=== PATIENT | male | born 1940 | race Caucasian/White ===

== ENCOUNTER 2016-09-22 11:50 | Inpatient (IN) | payer MEDICARE, OTHER ==
--- NOTE | ~2016-09-22 | DS ---
Discharge Summary [address] [place]. [address] NAME: HUSSAIN CANTOR : 39 STATUS : DIS IN PAT#: [id number] AGE: 76 ADM/REG DATE : 09/22/16 MR#: [id number] REPORT SERV DATE: 09/28/16 DICTATED BY: COSME TRACY DATE: 09/27/16 REPORT STATUS : Draft TRANSCRIBED BY: MODL DATE: 09/27/16 ADMISSION DATE: 09/22/2016 DISCHARGE DATE: 09/27/2016 CONDITION ON DISCHARGE: Stable. DISPOSITION: Discharged to inpatient rehab facility. DIAGNOSES ON DISCHARGE: 1. Recurrent falls because of unsteady gait secondary to Parkinson disease, which is a new diagnosis during this admission - patient has been started on medications for this. 2. Physical deconditioning which also necessitates inpatient rehab placement. 3. Hypertension, which is controlled; diabetes mellitus, controlled with an A1c of 6.2; vitamin D deficiency, which is stable; and hyperkalemia, resolved. BRIEF HOSPITAL COURSE: The patient is a 76-year-old male patient with a history of hypertension, some visual impairment, and a history of osteomyelitis of the right fifth toe, status post amputation who came in with generalized weakness and multiple falls and unsteady gait. The patient was actually diagnosed with new onset Parkinson disease during this admission after consulting Neurology. He was started on medications for Parkinson's and he is doing much better on the day of discharge, 09/27/2016. However, because he continues to be physically deconditioned and gait remains unsteady, he needs inpatient rehab placement for some time until he can get stronger and the physical deconditioning can improve. Hence, he is being sent to inpatient rehab. Medications that he has been started on and he is being sent home on include the following: The new medication will be Sinemet 25/100 one p.o. t.i.d. The patient will also continue with the rest of his home medications that include the followin. Aspirin 81 mg once a day. 2. Advair Diskus one puff b.i.d. 3. Metformin 1000 mg p.o. b.i.d. 4. Cromolyn nasal spray, one spray twice a day. 5. Norvasc 10 mg once a day. 6. Singulair 10 mg once a day. 7. Albuterol solution for inhalation p.r.n. 8. Levemir insulin 10 units every morning and NovoLog insulin injection sliding scale. The patient's most recent clinical results include the following. His CBC shows a WBC count of 7.2, hemoglobin 13.6, hematocrit of 38.6, platelets normal. Electrolyte profile shows sodium 136, potassium 5.6, which is coming down. BUN 23, creatinine 0.9. His glucose levels have been normal now and his A1c is less than 7 reflecting well controlled diabetes. Vitamin D was low, but this has been replaced. His sedimentation rate came back very slightly elevated at 22. Discharge Summary [address] [address] NAME: HUSSAIN CANTOR : 39 STATUS : DIS IN [facility]#: [id number] AGE: 76 ADM/REG DATE : 09/22/16 MR#: [id number] REPORT SERV DATE: 09/28/16 DICTATED BY: COSME TRACY DATE: 09/27/16 REPORT STATUS : Draft TRANSCRIBED BY: RIGOBERTO DATE: 09/27/16 He also had an MRI of the brain without contrast that shows mid brain atrophy and global atrophy, pattern of mid brain atrophy suggesting Parkinson's. No evidence of any acute infarction or acute bleed. The patient also had an MRI of the cervical spine as he complained of neck pain and frequent falls. This shows degenerative changes with retrolisthesis in C3-C4, but otherwise, no acute fracture at this time. No cord compression, no canal stenosis. The patient also had an electroencephalogram per Neurology, and this suggest essentially within normal limits with no seizure activity noted. Hence, he is being sent home on Sinemet according to Neurology suggestion. The patient also had a chest x-ray that showed no acute cardiopulmonary abnormality during this admission. Hence, the patient is being sent to inpatient rehab in stable condition, and I have spent about 40 minutes in coordinating discharge care of this patient including [id number] encounter. LATANYA/RIGOBERTO Cosme Tracy M.D. / [id number] CC: Tiffanie Ring M.D.
--- NOTE | ~2016-09-22 | IDS ---
Interim Discharge Summary [facility] [address] [facility] [place]. [address] NAME: HUSSAIN CANTOR : 39 STATUS : ADM IN [facility]#: [id number] AGE: 76 ADM/REG DATE : 09/22/16 MR#: [id number] REPORT SERV DATE: 09/27/16 DICTATED BY: SHIRA ARGUELLO DATE: 09/26/16 REPORT STATUS : Draft TRANSCRIBED BY: RIGOBERTO DATE: 09/26/16 ADMISSION DATE: 09/22/2016 DISCHARGE DATE: DATE OF DISCHARGE: Pending. CURRENT DIAGNOSES: 1. Unsteady gait secondary to Parkinson disease (new diagnosis during this admission). 2. Recurrent fall. 3. Physical deconditioning. 4. Hypertension. 5. Diabetes mellitus. A1c 6.2. 6. Vitamin D deficiency. 7. Hyperkalemia, resolved. 8. Current condition, stable. HISTORY OF PRESENT ILLNESS: In brief, this is a 76-year-old male with a medical history of hypertension, visual impairment, history of osteomyelitis of the right 5th toe, status post amputation, wound well healed; who presented to the hospital with progressive generalized weakness and unsteady gait. In the ER, the patient was found to have relatively normal vitals. Physical examination was positive for cogwheel rigidity concerning for Parkinson disease. The patient was admitted to the hospital for further evaluation. HOSPITAL COURSE: 1. Unsteady gait. Neurology was consulted, given concern for possible Parkinson based on physical examination of cogwheel rigidity and blunt affect. An MRI was ordered. MRI showed midbrain atrophy and global atrophy. Pattern of midbrain atrophy raises the concern that there may be underlying Parkinson disease. The patient was started on amantadine and Sinemet by Neurology. The patient's overall condition has improved. The patient currently remained stable. Now awaiting placement into SNF for physical rehabilitation. 2. Diabetes mellitus, HbA1c of 6.2. The patient has had multiple episodes of hypoglycemia during the course of this admission. Long-acting insulin has currently been discontinued. The patient is currently on subcu sliding scale insulin. At the time of discharge, the patient will likely require very low dose of oral hypoglycemic. 3. Vitamin D deficiency. The patient was found to have a vitamin D level of 7 and was started on 5000 units of vitamin D p.o. hourly. 4. Hyperkalemia. The patient had a potassium of 5.4. This was repeated and noted to be 5.1. We will currently monitor. 5. Current condition, stable. Awaiting placement. IOO/MODL Shira Kasper Interim Discharge Summary [address] [address] NAME: HUSSAIN CANTOR : 39 STATUS : ADM IN PAT#: [id number] AGE: 76 ADM/REG DATE : 09/22/16 MR#: [id number] REPORT SERV DATE: 09/27/16 DICTATED BY: SHIRA ARGUELLO DATE: 09/26/16 REPORT STATUS : Draft TRANSCRIBED BY: MODBaldomero DATE: 09/26/16 MD Albaro / [id number]
--- NOTE | ~2016-09-22 | HP ---
History And Physical [address] [place]. [address] NAME: HUSSAIN CANTOR : 39 STATUS : ADM IN [facility]#: [id number] AGE: 76 ADM/REG DATE : 09/22/16 MR#: [id number] REPORT SERV DATE: 09/22/16 DICTATED BY: ALLIE MENDES DATE: 09/22/16 REPORT STATUS : Draft TRANSCRIBED BY: MODL DATE: 09/22/16 DATE OF ADMISSION: 09/22/2016 ATTENDING PHYSICIAN: Dr. Allie Pittman. REASON FOR ADMISSION: Unsteady gait, falling, and altered mental status with declining acuity. HISTORY: This is a 76-year-old white male, who had been in the hospital in May with osteomyelitis of his right 5th toe. He has been followed by [facility] and has followed up with Dr. Rivera Fuentes subsequently. His primary care physician Dr. Juan King . The patient was in rehabilitation and did fairly well and went home but over the ensuing 3 weeks, he became increasingly stiff, difficulty with falling balance and now with change in mental status. He has had no fever, chills, or night sweats. No stiff neck. He has no seizure disorder. No unilateral weakness. No melena or hematemesis. Blood sugars have been in the 120 to 130 range without known hypoglycemia at home. He has been wearing a boot since he got home and has not been graduated to a shoe insert yet by Dr. Fuentes though his family was asking about this. He has gone home to live with one of his sons. PAST MEDICAL HISTORY: He had osteomyelitis of the 5th toe with amputation of that least toe on the right side. 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 His blood sugar has not been under fairly good control as his high blood pressure and constipation. HOME MEDICATIONS: His home medications at discharge in May were as follows: Amlodipine 10 mg p.o. daily; aspirin 81 mg p.o. daily; atorvastatin 40 mg at bedtime; Colace 100 mg p.o. b.i.d.; Lovenox at the time of discharge 40 units subcu q.12 hours; Levemir 10 units subcu daily, sliding scale with NovoLog; Mag-Ox 800 mg p.o. b.i.d.; Singulair 10 mg p.o. daily, MiraLAX 1 packet a day; cromolyn sodium nasal spray; Advair Diskus 1 puff daily; and metformin 1000 mg p.o. b.i.d. SOCIAL HISTORY: He has been for about 3 years. He was raised on [address] [address] and lived on [facility] for most of his life. He has never been a smoker. He used to drink beer 2 or 3 a day. 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 FAMILY HISTORY: There is diabetes that runs in the family. He does have an older brother and a younger brother; the older brother lives on [facility] near [facility] and the younger brother lives in [place]. His family doctor, Dr. Juan King is and Dr. Lisa Ulrich has been doing the History And Physical [address] [address] NAME: HUSSAIN CANTOR : 39 STATUS : ADM IN PAT#: [id number] AGE: 76 ADM/REG DATE : 09/22/16 MR#: [id number] REPORT SERV DATE: 09/22/16 DICTATED BY: ALLIE MENDES DATE: 09/22/16 REPORT STATUS : Draft TRANSCRIBED BY: RIGOBERTO DATE: 09/22/16 filling of his prescriptions most recently but he has only followed up with Dr. Rivera Fuentes, his foot surgeon. REVIEW OF SYSTEMS: He denies any chest pain or shortness of breath. He had no fever, chills, or night sweats. He is alert and oriented to place and time. He has had no melena or hematemesis. He was much more lethargic earlier today according to his children who are vigilant at bedside. He has had no abdominal pain, nausea, vomiting, or diarrhea. No fits, seizures, convulsion, unilateral weakness, melena, or hematemesis. The remainder of the review of systems is negative. PHYSICAL EXAMINATION: GENERAL: Elderly appearing white male, looking older than the stated age, in no acute distress. He arouses to . He is somewhat slurred in his speech. Blood pressure initially is 143/51, heart rate 68, respiratory rate 12, and oxygen saturation 96. HEENT: EOMI. Sclerae are clear. Conjunctivae pink. NECK: No bruit without any JVD. CHEST: Clear to A and P. HEART: Regular S1, S2 without any murmur, gallop, or click. ABDOMEN: Soft, nontender. Bowel sounds positive. No HSM. EXTREMITIES: Have abrasion joseph on the knees with left being greater than right and on the point of contact, elbows with ecchymoses of the hands and arms. His tone is increased bilaterally. He does have slight cogwheeling of the right upper extremity. He is stiff in the left upper extremity as well as is in the legs. Trace DTR is listed about the right knee, none at the left. His management scientist is equal and symmetric. Coordination appears to be intact with finger to nose. He has no baseline tremor. SKIN: With abrasions noted. LYMPHATICS: There is no adenopathy palpable. LABORATORY: CT scan of the brain only shows deep white matter disease. There is no evidence of acute intracranial process. His urinalysis showed 1 white cell and less than 1 red cell per high-powered field with a specific gravity of 1.015 and a pH of 5. The hemoglobin was 12.6, hematocrit , his MCV was 92.2, and platelets 191,000. Chest x-ray showed no acute disease and the CMP was unrevealing with a creatinine of 0.68 with BUN of 33. Sodium 139, potassium 4.1. Liver tests were normal. Albumin was 3.4. Troponin less than 0.01. EKG shows right bundle-branch block which is an old finding. Baseline muscle artifact. Left axis deviation. ASSESSMENT: History And Physical [address] [address] NAME: HUSSAIN CANTOR : 39 STATUS : ADM IN [facility]#: [id number] AGE: 76 ADM/REG DATE : 09/22/16 MR#: [id number] REPORT SERV DATE: 09/22/16 DICTATED BY: ALLIE MENDES DATE: 09/22/16 REPORT STATUS : Draft TRANSCRIBED BY: RIGOBERTO DATE: 09/22/16 1. Weakness with falling. 2. Altered mental status. The patient appears to be lethargic but arousable and is oriented to place and time. I wonder about polypharmacy. His home medications will be identified at this time. 3. Increased rigidity. I wondered if this may be a parkinsonism developing. He has had dysautonomia with a gastroparesis. No bladder dysfunction that the family knows about. He does have a slight resting tremor on the right side and increasing tone with more right-sided cogwheeling in the left side. We will get Neurology to see if they concur with parkinsonism is some of his problem. 4. Diabetes type 2. Blood sugars have been running in the 120 to 130 range at home. I wonder if he may have had an occult nocturnal hypoglycemic reaction though his onset of symptoms is actually over a 3 week period of time and not acute. 5. History of C-spinal surgery could account for the increase in tone in the lower extremities. 6. History of ileus and possible dysautonomia. 7. Severe diabetic neuropathy with normal circulation studies according to the children. PLAN: admit to the hospital, monitor, check blood sugars, restart home medications. Add physical therapy to see if he is able to walk safely. The family has considered [facility]. If he is unable to recover to the point where he could be able to care for himself more at home. We will check the ammonia level, B12, folic acid, and TSH level to see if any of these are revealing. MAGALI/RIGOBERTO Allie Mendes M.D. / [id number] CC: Tiffanie Lobo Jr., M.D. Yune-gill Jeong, M.D.
--- NOTE | ~2016-09-22 | EEG ---
Electro[address]ogram [address] [place]. [address] NAME: HUSSAIN CANTOR : 39 STATUS : ADM IN PAT#: [id number] AGE: 76 ADM/REG DATE : 09/22/16 MR#: [id number] REPORT SERV DATE: 09/23/16 DICTATED BY: DATE: REPORT STATUS : Draft TRANSCRIBED BY: MODL DATE: 09/23/16 CLINICAL INDICATIONS: Encephalopathy. DESCRIPTION: This EEG was performed using 10/20 electrode placement system. During the EEG study, symmetric background activity was noted, with the patient noted to have an artifact originating from the F1 electrode. Otherwise, the patient was noted to have symmetric background activity, predominant occipital rhythm of 8-9 hertz. Photic stimulation was performed, however, driving response was not seen. Hyperventilation was not performed secondary to the patient's underlying medical conditions. The patient achieved drowsy, stage I and II sleep with appropriate sleep spindles and K-complexes. INTERPRETATION: This EEG study obtained during awake, drowsy as well as stage I and II sleep may be considered within normal limits. No focal abnormalities, seizure activity, or seizure discharge was otherwise noted. Clinical correlation is recommended. [facility]/MODL Sebastián Erickson MD / [id number] CC: Shira Irvin MD
--- NOTE | ~2016-09-22 | CN ---
Consultation Report [facility] [address] [place]. [address] NAME: HUSSAIN CANTOR : 39 STATUS : ADM IN PAT#: [id number] AGE: 76 ADM/REG DATE : 09/22/16 MR#: [id number] REPORT SERV DATE: 09/22/16 DICTATED BY: DATE: REPORT STATUS : Draft TRANSCRIBED BY: MODL DATE: 09/22/16 NEUROLOGY CONSULTATION DATE OF CONSULTATION: 09/22/2016 REASON FOR CONSULT: Gait abnormality. HISTORY OF PRESENT ILLNESS: This is a 76-year-old male with underlying peripheral neuropathy, presented to [facility] secondary to gait abnormality with the patient's ER notes reports the patient has had a least two-weeks' duration of worsening gait and generalized weakness with the patient apparently has had a fall two weeks ago and has recurrent falls since then. The patient at this time denies any pain and denies any cervical or spinal pain. The patient himself denies any bowel or bladder difficulties, but he reports a longer duration of symptom with the patient reports difficulties with the gait as well as ambulation ever since toe amputation. The patient does not remember when the amputation took place, although after reviewing medical record, it appeared the patient did have a toe amputation secondary to osteomyelitis in May 2016. The patient reports a fall at least a month ago and appeared to have frequent falls, but otherwise denies any dysarthria. The patient at baseline does have vision difficulties secondary to retinopathy and patient denies any visual hallucinations. No other complaint was otherwise noted. The patient denies any recent fever, chills, nausea, vomiting, chest pain, or shortness of breath and denies any recent changes in medication. The patient does have a history of toe amputation secondary to osteomyelitis as well as a history of diabetes with the history of a neuropathy with loss sensation in the lower extremities. The patient also was noted to have retinopathy and was legally blind. The patient does have a history of hypertension, COPD, asthma, right bundle branch block, depression, anxiety as well as previous a history of diabetic foot ulcers. ALLERGIES: THE PATIENT REPORTS NO KNOWN DRUG ALLERGIES. SOCIAL HISTORY: Denies tobacco, reports daily two to three beers per day according to medical records and no illicit drug usage was otherwise noted. FAMILY HISTORY: Significant for diabetes. HOME MEDICATION: At the time of hospital admission consist of Proventil, Norvasc, Advair, Glucophage, Singulair, Coumadin, nasal spray, Levemir, and NovoLog. REVIEW OF SYSTEMS: At time of evaluation, review of systems negative except for those mentioned in the HPI. PHYSICAL EXAMINATION: VITAL SIGNS: The patient was noted to have vital signs with T-max of 97.5, heart rate of 68 to 72, respirations of 12 to 16, and blood pressure of 130 to 143 over 51 to 63. Consultation Report [address] [place]. [address] NAME: HUSSAIN CANTOR : 39 STATUS : ADM IN PAT#: [id number] AGE: 76 ADM/REG DATE : 09/22/16 MR#: [id number] REPORT SERV DATE: 09/22/16 DICTATED BY: DATE: REPORT STATUS : Draft TRANSCRIBED BY: RIGOBERTO DATE: 09/22/16 GENERAL: The patient is well developed, well nourished, in no acute distress. CARDIOVASCULAR: Regular rate and rhythm. No carotid bruits were otherwise auscultated. PULMONARY: Clear to auscultation bilaterally. NEUROLOGICAL EXAMINATION: Generally, the patient is alert and oriented to person, place, year, and month. Also, the patient was noted to have mild psychosocial retardation. At the time of evaluation, intact registration, but difficulty with recall. At the time of evaluation, the patient is able to follow simple and 2-step commands, also has some difficulties with complex commands. Dysarthria was noted, but no significant aphasia was appreciated. Cranial nerves II through XII, pupils equal, round, and reactive to light. Horizontal eye movement was noted to be intact with restricted vertical eye movement. At the time of evaluation, blink to threat was noted, also the patient was noted having difficulties visualized the finger with to visualize the examiner's finger. The patient otherwise demonstrated symmetrical facial expression. Midline tongue. Normal palatal movement. Mild decreased hearing in bilateral ear. The patient reports symmetrical sensation in bilateral face. The patient was noted to have a severe decreased sensation in the bilateral lower extremity. Reports an intact sensation in bilateral upper extremity. At the time of evaluation was noted to have generalized rigidity at the time of evaluation, no clear resting tremor was visualized or posture tremor was seen, especially in the left upper extremity. No clear ataxia was otherwise noted. The patient does have reflexes in bilateral biceps as well as trace patellar reflex in the right lower extremity and absent left patellar reflex. Upgoing toe and bilateral plantar reflexes. The patient was noted to have posture instability was retropulsion, but no clear ataxia. Gait was unable to be evaluated. Also, the patient was having difficulty maintaining sitting posture unsupported. The patient was noted to have 4/5 for left upper extremity and 4/5 left lower extremity on examination, with the patient noted to have 5/5 right upper extremity and right lower extremity strength. LABORATORY STUDIES: The patient's laboratory studies demonstrated chemistry panel, sodium 139, potassium 4.1, chloride 108, bicarb 23, BUN of 33, creatinine of 0.68, glucose of 95, calcium of 9.0. White blood cell count of 11.3, hemoglobin of 12.6, hematocrit of 34.5, and platelet count of 190. Urinalysis otherwise demonstrated negative leukocyte esterase, negative nitrite. CT scan of the brain demonstrated mild generalized atrophy, but no acute event was seen. IMPRESSION: Gait abnormalities. No resting tremor was otherwise noted, but generalized rigidity and stiffness was appreciated. On evaluation, the patient was noted to have posture tremors with the left upper extremity, but no clear resting tremors. Duration of gait abnormality was unknown, but likely two weeks or little. The patient denies bowel or bladder difficulties and was noted to have retained reflexes in bilateral upper extremity as well as trace reflex in right lower extremity patella. Also, was noted to have weakness in the left upper extremity and left lower extremity on evaluation. IMPRESSION: We will obtain laboratory study as well as MRI of the brain and C-spine without Consultation Report [address] [place]. [address] NAME: HUSSAIN CANTOR : 39 STATUS : ADM IN [facility]#: [id number] AGE: 76 ADM/REG DATE : 09/22/16 MR#: [id number] REPORT SERV DATE: 09/22/16 DICTATED BY: DATE: REPORT STATUS : Draft TRANSCRIBED BY: MODL DATE: 09/22/16 contrast. Pending the patient's mental status as well as lab and MRI results, may start the patient on trial of Sinemet, we will order medications, and we will order further diagnostic study as needed. RECOMMENDATION: 1. EEG. 2. MRI of the brain and C-spine without contrast. 3. Vitamin B12, folate, TSH, and ammonia level pending. 4. We will obtain procalcitonin level, sedimentation rate, CRP, free T4 with morning labs. 5. PT/OT to evaluate and treat. 6. We will also check orthostatic vital signs. [facility]/MODL Sebastián Erickson MD / [id number] CC: Ramiro Pittman M.D.
[~2016-09-22 11:50] MED LIST: ADVAIR250 INH; ADVIL PO; FORTAMET500 MG PO; NASALCROM5.2 MG/ACT; NORV5 PO; SINGULAIR1 PO
[2016-09-22 12:02] LABS: ASCORBIC ACID (UR NOT ORDER) NEG (NEG); BASOPHILS 0.2 %; BASOPHILS ABSOLUTE 0.02 10/3/uL (0.0-0.16); BILIRUBIN, URINE NEGATIVE (NEG); EOSINOPHILS ABSOLUTE 0.11 10/3/uL (0.0-0.53); ER CBC TAT 0 Hrs 14 Mins; ER URINALYSIS TAT 0 Hrs 14 Mins; HEMATOCRIT 34.5 % (40.0-51.0); HEMOGLOBIN 12.6 g/dL (13.6-17.8); IMMATURE GRANULOCYTES 0.4 %; IMMATURE GRANULOCYTES ABSOLUTE 0.05 10/3/uL (0.0-0.11); KETONE, URINE NEGATIVE (NEG); LEUKOCYTE ESTERASE(NOT OR NEG (NEG); LYMPHOCYTES 6.9 %; LYMPHOCYTES ABSOLUTE 0.78 10/3/uL (0.67-4.30); MEAN CORPUSCULAR HEMOGLOB 33.7 pg (26.0-34.0); MEAN CORPUSCULAR VOLUME 92.2 fL (80-100); MEAN PLATELET VOLUME 9.2 fL (9.2-13.0); MONOCYTES 6.6 %; MONOCYTES ABSOLUTE 0.74 10/3/uL (0.21-1.20); NEUTROPHILS 84.9 %; NEUTROPHILS ABSOLUTE 9.55 10/3/uL (2.02-8.40); NITRITE (URINE) NEG (NEG); RBC DISTRIBUTION WIDTH 15.8 % (12.0-16.0); RED CELL COUNT 3.74 10/6/uL (4.7-6.1); WBC (NOT ORDERED) (RFLEX) 1 (0-5); WHITE BLOOD CELLS 11.3 10/3/uL (4.5-10.5)
[2016-09-22 12:04] LABS: MANUAL DIFF NO %; MEAN CORPUS HGB CONC 36.5 g/dL (32.0-36.0); PLATELET COUNT 190 10/3/uL (150-400)
[2016-09-22 12:19] LABS: A/G RATIO 0.8 (0.7-1.9); ALKALINE PHOSPHATASE 115 U/L (45-117); CHLORIDE, SERUM 108 MMOL/L (96-112); CO2 (CARBON DIOXIDE) 23 MMOL/L (24-34); CPK 43 U/L (0-200); CREATININE 0.68 MG/DL (0.70-1.30); GFR AFRICAN AMERICAN 107 ML/MIN (>=60); GFR NON AFRICAN AMERICAN 92 ML/MIN (>=60); GLOBULIN 4.1 G/DL (2.5-4.1); POTASSIUM, SERUM 4.1 MMOL/L (3.5-5.3); SGOT(AST) 17 U/L (5-40); SGPT(ALT) 28 U/L (5-65); SODIUM, SERUM 139 MMOL/L (135-148); TOTAL BILIRUBIN 0.3 MG/DL (0-1.2); TOTAL PROTEIN 7.5 G/DL (6.0-8.5); TROPONIN I <0.02 NG/ML (<0.05)
[2016-09-22 12:20] LABS: ALBUMIN 3.4 G/DL (3.5-5.0); BUN (BLOOD UREA NITROGEN) 33 MG/DL (6-23); GLUCOSE, SERUM 95 MG/DL (60-99)
[2016-09-22] MEDS ORDERED: ADVAIR250 INH (14:07)
[2016-09-22] MEDS ORDERED: CROMOLYN NAS (14:07)
[2016-09-22] MEDS ORDERED: NORV10 PO (14:08)
[2016-09-22] MEDS ORDERED: SINGULAIR1 PO (14:08)
[2016-09-22] MEDS ORDERED: GLUCOPHAGE1000 MG PO (14:08)
[2016-09-22] MEDS ORDERED: ALBUTEROL5 PO (14:10)
[2016-09-22] MEDS ORDERED: *UNABLE3 (14:11)
[2016-09-22] MEDS ORDERED: LEVEMIR SC (14:39)
[2016-09-22] MEDS ORDERED: NOVOLOG SC (14:39)
[2016-09-22 17:27] LABS: ULTRASENSITIVE TSH 4.47 MCIU/ML (0.358-3.740)
[2016-09-23 05:32] LABS: C-REACTIVE PROTEIN 25.7 MG/L (<8.0); FREE T4 1.11 NG/DL (0.76-1.46); ULTRASENSITIVE TSH 5.11 MCIU/ML (0.358-3.740)
[2016-09-23 06:38] LABS: PROCALCITONIN 0.06 ng/mL (<0.5)
[2016-09-23 15:15] LABS: BASOPHILS 0.5 %; BASOPHILS ABSOLUTE 0.03 10/3/uL (0.0-0.16); EOSINOPHILS 2.6 %; EOSINOPHILS ABSOLUTE 0.15 10/3/uL (0.0-0.53); HEMATOCRIT 34.1 % (40.0-51.0); HEMOGLOBIN 12.2 g/dL (13.6-17.8); IMMATURE GRANULOCYTES 0.9 %; IMMATURE GRANULOCYTES ABSOLUTE 0.05 10/3/uL (0.0-0.11); LYMPHOCYTES 19.7 %; LYMPHOCYTES ABSOLUTE 1.12 10/3/uL (0.67-4.30); MANUAL DIFF NO %; MEAN CORPUS HGB CONC 35.8 g/dL (32.0-36.0); MEAN CORPUSCULAR HEMOGLOB 33.4 pg (26.0-34.0); MEAN CORPUSCULAR VOLUME 93.4 fL (80-100); MEAN PLATELET VOLUME 9.8 fL (9.2-13.0); MONOCYTES 8.4 %; MONOCYTES ABSOLUTE 0.48 10/3/uL (0.21-1.20); NEUTROPHILS 67.9 %; NEUTROPHILS ABSOLUTE 3.86 10/3/uL (2.02-8.40); PLATELET COUNT 185 10/3/uL (150-400); RBC DISTRIBUTION WIDTH 16.1 % (12.0-16.0); RED CELL COUNT 3.65 10/6/uL (4.7-6.1); WHITE BLOOD CELLS 5.7 10/3/uL (4.5-10.5)
[2016-09-24 05:20] LABS: BASOPHILS 0.2 %; BASOPHILS ABSOLUTE 0.01 10/3/uL (0.0-0.16); EOSINOPHILS 2.7 %; EOSINOPHILS ABSOLUTE 0.17 10/3/uL (0.0-0.53); HEMATOCRIT 35.9 % (40.0-51.0); HEMOGLOBIN 12.9 g/dL (13.6-17.8); IMMATURE GRANULOCYTES ABSOLUTE 0.06 10/3/uL (0.0-0.11); LYMPHOCYTES 26.2 %; LYMPHOCYTES ABSOLUTE 1.63 10/3/uL (0.67-4.30); MEAN CORPUS HGB CONC 35.9 g/dL (32.0-36.0); MEAN CORPUSCULAR VOLUME 94.7 fL (80-100); MEAN PLATELET VOLUME 9.3 fL (9.2-13.0); MONOCYTES 9.8 %; MONOCYTES ABSOLUTE 0.61 10/3/uL (0.21-1.20); NEUTROPHILS 60.1 %; NEUTROPHILS ABSOLUTE 3.75 10/3/uL (2.02-8.40); PLATELET COUNT 191 10/3/uL (150-400); RBC DISTRIBUTION WIDTH 15.8 % (12.0-16.0); RED CELL COUNT 3.79 10/6/uL (4.7-6.1); WHITE BLOOD CELLS 6.2 10/3/uL (4.5-10.5)
[2016-09-24 05:21] LABS: MANUAL DIFF NO %
[2016-09-24 05:31] LABS: ALBUMIN 3.3 G/DL (3.5-5.0); CALCIUM, SERUM 9.1 MG/DL (8.5-10.4); CHLORIDE, SERUM 107 MMOL/L (96-112); CO2 (CARBON DIOXIDE) 26 MMOL/L (24-34); CREATININE 0.94 MG/DL (0.70-1.30); GFR AFRICAN AMERICAN 90 ML/MIN (>=60); GFR NON AFRICAN AMERICAN 78 ML/MIN (>=60); PHOSPHORUS, SERUM 3.2 MG/DL (2.5-4.5); POTASSIUM, SERUM 4.7 MMOL/L (3.5-5.3); SODIUM, SERUM 140 MMOL/L (135-148)
[2016-09-24 05:33] LABS: BUN (BLOOD UREA NITROGEN) 25 MG/DL (6-23); GLUCOSE, SERUM 60 MG/DL (60-99)
[2016-09-25 06:57] LABS: BASOPHILS 0.2 %; BASOPHILS ABSOLUTE 0.02 10/3/uL (0.0-0.16); BUN (BLOOD UREA NITROGEN) 22 MG/DL (6-23); CALCIUM, SERUM 8.9 MG/DL (8.5-10.4); CHLORIDE, SERUM 107 MMOL/L (96-112); CO2 (CARBON DIOXIDE) 26 MMOL/L (24-34); CREATININE 0.83 MG/DL (0.70-1.30); EOSINOPHILS 2.1 %; EOSINOPHILS ABSOLUTE 0.21 10/3/uL (0.0-0.53); GFR AFRICAN AMERICAN 98 ML/MIN (>=60); GFR NON AFRICAN AMERICAN 85 ML/MIN (>=60); HEMATOCRIT 36.6 % (40.0-51.0); HEMOGLOBIN 12.9 g/dL (13.6-17.8); IMMATURE GRANULOCYTES 0.5 %; IMMATURE GRANULOCYTES ABSOLUTE 0.05 10/3/uL (0.0-0.11); LYMPHOCYTES 11.2 %; LYMPHOCYTES ABSOLUTE 1.14 10/3/uL (0.67-4.30); MEAN CORPUS HGB CONC 35.2 g/dL (32.0-36.0); MEAN CORPUSCULAR HEMOGLOB 33.4 pg (26.0-34.0); MEAN CORPUSCULAR VOLUME 94.8 fL (80-100); MEAN PLATELET VOLUME 9.5 fL (9.2-13.0); MONOCYTES 7.8 %; NEUTROPHILS 78.2 %; NEUTROPHILS ABSOLUTE 7.99 10/3/uL (2.02-8.40); PHOSPHORUS, SERUM 2.7 MG/DL (2.5-4.5); PLATELET COUNT 190 10/3/uL (150-400); POTASSIUM, SERUM 4.7 MMOL/L (3.5-5.3); RBC DISTRIBUTION WIDTH 15.6 % (12.0-16.0); RED CELL COUNT 3.86 10/6/uL (4.7-6.1); SODIUM, SERUM 141 MMOL/L (135-148)
[2016-09-25 06:58] LABS: GLUCOSE, SERUM 94 MG/DL (60-99)
[2016-09-25 07:15] LABS: MANUAL DIFF NO %; WHITE BLOOD CELLS 10.2 10/3/uL (4.5-10.5)
[2016-09-25 07:52] LABS: PLATELET ESTIMATE ADQ (ADEQUATE)
[2016-09-25 07:53] LABS: GIANT PLATELET RARE; RBC MORPHOLOGY NORM (NORMAL)
[2016-09-26 04:56] LABS: BASOPHILS 0.1 %; BASOPHILS ABSOLUTE 0.01 10/3/uL (0.0-0.16); EOSINOPHILS 3.9 %; HEMATOCRIT 37.1 % (40.0-51.0); HEMOGLOBIN 12.9 g/dL (13.6-17.8); IMMATURE GRANULOCYTES 0.6 %; IMMATURE GRANULOCYTES ABSOLUTE 0.05 10/3/uL (0.0-0.11); LYMPHOCYTES 18.2 %; MEAN CORPUS HGB CONC 34.8 g/dL (32.0-36.0); MEAN CORPUSCULAR HEMOGLOB 33.3 pg (26.0-34.0); MEAN CORPUSCULAR VOLUME 95.9 fL (80-100); MEAN PLATELET VOLUME 9.6 fL (9.2-13.0); MONOCYTES 10.2 %; MONOCYTES ABSOLUTE 0.79 10/3/uL (0.21-1.20); NEUTROPHILS ABSOLUTE 5.16 10/3/uL (2.02-8.40); PLATELET COUNT 194 10/3/uL (150-400); RBC DISTRIBUTION WIDTH 15.9 % (12.0-16.0); RED CELL COUNT 3.87 10/6/uL (4.7-6.1); WHITE BLOOD CELLS 7.7 10/3/uL (4.5-10.5)
[2016-09-26 05:10] LABS: BUN (BLOOD UREA NITROGEN) 20 MG/DL (6-23); CALCIUM, SERUM 9.2 MG/DL (8.5-10.4); CHLORIDE, SERUM 105 MMOL/L (96-112); CO2 (CARBON DIOXIDE) 27 MMOL/L (24-34); CREATININE 0.86 MG/DL (0.70-1.30); GFR AFRICAN AMERICAN 97 ML/MIN (>=60); GFR NON AFRICAN AMERICAN 84 ML/MIN (>=60); GLUCOSE, SERUM 95 MG/DL (60-99); POTASSIUM, SERUM 5.4 MMOL/L (3.5-5.3); SODIUM, SERUM 138 MMOL/L (135-148)
[2016-09-26 05:23] LABS: MANUAL DIFF NO %
[2016-09-26 21:53] LABS: THIAMINE 130.2 nmol/L (())
[2016-09-27 05:29] LABS: BASOPHILS 0.3 %; BASOPHILS ABSOLUTE 0.02 10/3/uL (0.0-0.16); EOSINOPHILS 5.1 %; EOSINOPHILS ABSOLUTE 0.37 10/3/uL (0.0-0.53); HEMATOCRIT 38.6 % (40.0-51.0); HEMOGLOBIN 13.6 g/dL (13.6-17.8); IMMATURE GRANULOCYTES 0.7 %; IMMATURE GRANULOCYTES ABSOLUTE 0.05 10/3/uL (0.0-0.11); LYMPHOCYTES 18.6 %; LYMPHOCYTES ABSOLUTE 1.34 10/3/uL (0.67-4.30); MANUAL DIFF NO %; MEAN CORPUS HGB CONC 35.2 g/dL (32.0-36.0); MEAN CORPUSCULAR HEMOGLOB 33.8 pg (26.0-34.0); MEAN PLATELET VOLUME 9.6 fL (9.2-13.0); MONOCYTES 12.4 %; MONOCYTES ABSOLUTE 0.89 10/3/uL (0.21-1.20); NEUTROPHILS 62.9 %; NEUTROPHILS ABSOLUTE 4.52 10/3/uL (2.02-8.40); PLATELET COUNT 213 10/3/uL (150-400); RBC DISTRIBUTION WIDTH 15.4 % (12.0-16.0); RED CELL COUNT 4.02 10/6/uL (4.7-6.1); WHITE BLOOD CELLS 7.2 10/3/uL (4.5-10.5)
[2016-09-27 05:42] LABS: BUN (BLOOD UREA NITROGEN) 23 MG/DL (6-23); CALCIUM, SERUM 9.9 MG/DL (8.5-10.4); CHLORIDE, SERUM 100 MMOL/L (96-112); CO2 (CARBON DIOXIDE) 31 MMOL/L (24-34); CREATININE 0.92 MG/DL (0.70-1.30); GFR AFRICAN AMERICAN 93 ML/MIN (>=60); GFR NON AFRICAN AMERICAN 80 ML/MIN (>=60); GLUCOSE, SERUM 109 MG/DL (60-99); POTASSIUM, SERUM 5.6 MMOL/L (3.5-5.3); SODIUM, SERUM 137 MMOL/L (135-148)
== END 2016-09-27 14:02 | DRG 57 ==
LOC: ER 11:50 → 6NO 13:54
PROVIDERS: Emergency Medicine; Hospitalist; Internal Medicine; Psychiatry & Neurology Neurology
DX: G20 Parkinson's disease (principal); E11.40 Type 2 diabetes mellitus with diabetic neuropathy, unspecified; E87.5 Hyperkalemia; I10 Essential (primary) hypertension; E11.9 Type 2 diabetes mellitus without complications; E55.9 Vitamin D deficiency, unspecified; D72.829 Elevated white blood cell count, unspecified; J44.9 Chronic obstructive pulmonary disease, unspecified; R26.81 Unsteadiness on feet; Z91.81 History of falling; W19.XXXA Unspecified fall, initial encounter; E11.319 Type 2 diabetes mellitus with unspecified diabetic retinopathy without macular edema; H54.8 Legal blindness, as defined in USA; I45.10 Unspecified right bundle-branch block; Z83.3 Family history of diabetes mellitus; R47.1 Dysarthria and anarthria; Z89.429 Acquired absence of other toe(s), unspecified side
CPT/HCPCS: 70450; 70551; 71010; 72141; 80048; 80053; 80069; 81001; 82140; 82306; 82550; 82607; 82746; 82962; 83036; 83735; 84100; 84132; 84145; 84425; 84439; 84443; 84484; 85025; 85652; 86140; 94640; 95819; 97110-GP; 97116-GP; 97162-GP; 97166-GO; 99285; A9270-GY; G8978-CK-GP; G8979-CJ-GP; G8987-CK-GO; G8988-CJ-GO